=== PATIENT | female | born 1955 | race Caucasian/White ===

== ENCOUNTER 2022-03-10 05:44 | Day surgery (SDC) | payer MEDICARE, BC ==
[2022-03-04 11:43] LABS: BASOPHILS % (AUTO) 0.5 % (0.0-5.0); EOSINOPHILS % (AUTO) 0.7 % (0.0-8.0); LYMPHOCYTES % (AUTO) 17.7 % (21.0-51.0); MEAN CORPUSCULAR HEMOGLOBIN 28.5 pg (27.0-33.0); MEAN CORPUSCULAR VOLUME 86.3 fL (79-99); NEUTROPHILS % (AUTO) 76.6 % (40.0-77.0); PLATELET COUNT (AUTO) 370 K/uL (130-400); RED BLOOD CELL COUNT(AUTO) 4.98 MIL/uL (4.00-5.50); RED CELL DISTRIBUTION WIDTH 12.9 % (11.0-15.5); WHITE BLOOD COUNT (AUTO) 12.7 K/uL (4.8-10.8)
[2022-03-04 11:55] LABS: CREATININE 0.9 mg/dL (0.5-1.5); POTASSIUM 3.7 mmol/L (3.5-5.1)
[2022-03-09 10:02] VITALS: BP 177/85
[~2022-03-10] VITALS: Ht 162.6 cm; Wt 99.5 kg
[2022-03-10] VITALS (18 sets, daily range): BP systolic 138–163; BP diastolic 61–87
[~2022-03-10 05:44] MED LIST: ASPI-1012 PO; ATOR40TA71 PO; DULA1.5P SQ; HYDR25TA PO; INSLAN SQ; no medications
[2022-03-10] MEDS ORDERED: LACTATED RINGERS 1000ML 1,000 ML IV SCH (06:00)
[2022-03-10] MEDS: CLINDAMYCIN IVPB 600MG/50ML 50 ML IV SCH ×2 (06:00→07:48)
[2022-03-10] MEDS ORDERED: ONDANSETRON 4MG INJ IVP SCH (06:00)
[2022-03-10] MEDS ORDERED: 0.9%NACL 1000ML 1,000 ML IV ONE (06:07)
[2022-03-10] MEDS ORDERED: PROPOFOL 10 MG/ML 20ML VIAL IV ONE (06:39)
[2022-03-10] MEDS ORDERED: SUCCINYLCHOLINE CHLORIDE 20 MG/ML 10 ML VIAL ONE (06:39)
[2022-03-10] MEDS ORDERED: LIDOCAINE PF 100MG/5ML (2%) SYRINGE 5ML ONE (06:39)
[2022-03-10] MEDS ORDERED: ROCURONIUM 10MG/1ML SYR 10 MG/ML ML ONE (06:39)
[2022-03-10] MEDS ORDERED: MIDAZOLAM HCL 1 MG/ML 2ML VIAL ONE (06:39)
[2022-03-10] MEDS ORDERED: FENTANYL CITRATE PF 50 MCG/1 ML 2ML VIAL ONE (06:40)
[2022-03-10] MEDS ORDERED: ROPIVACAINE 0.5% 5MG/ML 30ML IJ ONE (06:44)
[2022-03-10] MEDS ORDERED: ONDANSETRON 4MG INJ ONE (08:22)
[2022-03-10] MEDS ORDERED: GLYCOPYRROLATE 1 MG/5 ML SYRINGE ONE (08:24)
[2022-03-10] MEDS ORDERED: NEOSTIGMINE 5MG/5ML SYR IV ONE (08:27)
== END 2022-03-10 11:15 | disposition home or self-care (01) ==
LOC: DAH 05:44
PROVIDERS: ATTEND Orthopaedic Surgery
DX: M75.112 Incomplete rotator cuff tear or rupture of left shoulder, not specified as traumatic (principal); M25.812 Other specified joint disorders, left shoulder; G89.18 Other acute postprocedural pain; I10 Essential (primary) hypertension; E11.9 Type 2 diabetes mellitus without complications; E78.00 Pure hypercholesterolemia, unspecified; E66.9 Obesity, unspecified; Z79.01 Long term (current) use of anticoagulants; Z79.899 Other long term (current) drug therapy; Z79.82 Long term (current) use of aspirin; Z79.4 Long term (current) use of insulin; Z88.6 Allergy status to analgesic agent; Z86.73 Personal history of transient ischemic attack (TIA), and cerebral infarction without residual deficits; Z88.0 Allergy status to penicillin; Z88.8 Allergy status to other drugs, medicaments and biological substances; Z88.2 Allergy status to sulfonamides; Z82.49 Family history of ischemic heart disease and other diseases of the circulatory system; Z68.36 Body mass index [BMI] 36.0-36.9, adult
CPT/HCPCS: 29826; 29827; 36415; 64415; 80048; 82948 ×2; 85025; 87635; 93005; A4215; A4221; A4222; A4223; A4565; A4600; A4649 ×4; A4663; A4930; A6207; A6260; C1713; C9803; J0330; J2001; J2405; J2704; J2710; J2795; J3010; J3490 ×2; J7030; 76942; J2250